=== PATIENT | female | born 1985 | race Caucasian/White ===

== ENCOUNTER 2019-06-02 01:48 | Emergency (ER) | payer SELFPAY ==
[~2019-06-02] VITALS: Ht 160 cm; Wt 93.0 kg
[2019-06-02 01:48] VITALS: BP_SYST 179
[2019-06-02 03:25] LABS: BASOPHILS % (AUTO) 0.4 % (0.0-2.0); EOSINOPHILS # (AUTO) 0.1 K/uL (0.0-0.4); EOSINOPHILS % (AUTO) 1.3 % (0.0-4.0); LYMPHOCYTES % (AUTO) 29.4 % (20.5-51.5); MEAN CORPUSCULAR HEMOGLOBIN 29 pg (27-31); MEAN CORPUSCULAR HGB CONC 33 % (32-36); MEAN CORPUSCULAR VOLUME 87 fL (79.0-98.0); MONOCYTES # (AUTO) 0.7 K/uL (0.0-1.0); MONOCYTES % (AUTO) 6.5 % (1.7-9.3); NEUTROPHILS # (AUTO) 6.4 K/uL (1.8-7.7); NEUTROPHILS % (AUTO) 62.4 % (40.0-70.0); PLATELET COUNT (AUTO) 257 K/uL (130-430); RED BLOOD CELL COUNT(AUTO) 4.84 MIL/uL (4.2-6.2); RED CELL DISTRIBUTION WIDTH 13.1 % (9.0-15.0); WHITE BLOOD COUNT (AUTO) 10.3 K/uL (4.8-10.8)
[2019-06-02 03:37] LABS: CALCIUM 8.1 mg/dL (8.4-11.0); CREATININE 0.57 mg/dL (0.55-1.30)
[2019-06-02 03:42] LABS: ALBUMIN 3.4 g/dL (3.4-4.8); TOTAL BILIRUBIN 0.3 mg/dL (0.0-1.0)
[2019-06-02 04:00] LABS: BILIRUBIN,URINE NEGATIVE (NEGATIVE); CLARITY/URINE CLEAR (CLEAR); COLOR,URINE YELLOW (YELLOW); GLUCOSE,URINE NEGATIVE (NEGATIVE); KETONES,URINE NEGATIVE (NEGATIVE); LEUKOCYTE ESTERASE ,URINE NEGATIVE (NEGATIVE); NITRITE, URINE NEGATIVE (NEGATIVE); PROTEIN URINE NEGATIVE (NEGATIVE); UROBILINOGEN,URINE 0.2 (0.2-1.0)
[2019-06-02 04:03] LABS: BLOOD, URINE TRACE (NEGATIVE)
[2019-06-02 04:07] LABS: BACTERIA,URINE FEW /HPF (None Seen); WBC,URINE 0-3 /HPF (0-3)
[2019-06-02 04:25] VITALS: BP_SYST 156
== END 2019-06-02 04:25 | disposition home or self-care (01) ==
LOC: SED 01:48
DX: K29.70 Gastritis, unspecified, without bleeding (principal); Z90.49 Acquired absence of other specified parts of digestive tract
CPT/HCPCS: 36415; 71045; 71250-TC; 80053; 81000-TC; 81025; 83605; 83690-TC; 83880; 84484; 85025; 85379; 87040-TC; 93005; 99285

== ENCOUNTER 2021-08-14 16:00 | Emergency (ER) | payer BC, MEDICAID ==
[~2021-08-14] VITALS: Ht 160 cm; Wt 81.6 kg
--- NOTE | 2021-08-14 16:02 | NUR ---
ekg done in triage room
[2021-08-14 16:05] VITALS: BP_SYST 143
--- NOTE | 2021-08-14 16:10 | NUR ---
PT C/O CHEST PAIN SINCE THIS AM UPPER CHEST RADIATING TO UPPER BACK WITH SOB AND JAW PAIN.
--- NOTE | 2021-08-14 16:13 | NUR ---
Patient to ER bed 8 to gown for evaluation. Side rails up. Report given to ZELDA ONEAL.
--- NOTE | 2021-08-14 16:25 | NUR ---
MD QUINN AT BEDSIDE FOR ASSESSMENT
[2021-08-14] MEDS ORDERED: NACL 0.9% 1,000 ML IV ONE (16:30)
[2021-08-14] MEDS ORDERED: MORPHINE 4 MG INJ. 4 MG/ML VIAL IVP ONE (16:30)
[2021-08-14] MEDS ORDERED: ONDANSETRON HCL 4 MG/2 ML VIAL IVP ONE (16:30)
[2021-08-14] MEDS ORDERED: ACETAMINOPHEN 500 MG TABLET PO ONE (16:45)
[2021-08-14 17:08] LABS: BASOPHILS # (AUTO) 0.1 K/uL (0.0-0.2); HEMATOCRIT 42.8 % (36-48); HEMOGLOBIN 14.4 g/dL (12.0-16.0); LYMPHOCYTES # (AUTO) 0.4 K/uL (1.0-5.5); LYMPHOCYTES % (AUTO) 5.6 % (20.5-51.5); MEAN CORPUSCULAR HEMOGLOBIN 29 pg (27-31); MEAN CORPUSCULAR HGB CONC 34 % (32-36); MEAN CORPUSCULAR VOLUME 85 fL (79.0-98.0); MONOCYTES # (AUTO) 0.5 K/uL (0.0-1.0); MONOCYTES % (AUTO) 6.3 % (1.7-9.3); NEUTROPHILS # (AUTO) 6.7 K/uL (1.8-7.7); NEUTROPHILS % (AUTO) 87.1 % (40.0-70.0); PLATELET COUNT (AUTO) 244 K/uL (130-430); RED BLOOD CELL COUNT(AUTO) 5.04 MIL/uL (4.2-6.2); RED CELL DISTRIBUTION WIDTH 13.2 % (9.0-15.0); WHITE BLOOD COUNT (AUTO) 7.7 K/uL (4.8-10.8)
--- NOTE | 2021-08-14 17:09 | NUR ---
covid chana done at bedside and sent to lab
[2021-08-14 17:12] LABS: ANION GAP 10 (5-15); CALCIUM 8.4 mg/dL (8.4-11.0); CHLORIDE 101 mmol/L (98-107); CREATININE 1.01 mg/dL (0.55-1.30); GLUCOSE 111 mg/dL (70-99); POTASSIUM 3.1 mmol/L (3.5-5.1); SODIUM SERUM 135 mmol/L (136-145); UREA NITROGEN, BLOOD 7 mg/dL (8-21)
[2021-08-14 17:14] LABS: GFR AFRICAN AMERICAN 80 mL/min (>90)
[2021-08-14 17:19] LABS: ALANINE AMINOTRANSFERASE 30 U/L (12-78); ALBUMIN 3.9 g/dL (3.4-4.8); ASPARTATE AMINOTRANSFERASE 30 U/L (10-37); TOTAL BILIRUBIN 0.5 mg/dL (0.0-1.0)
[2021-08-14] MEDS ORDERED: IBUP-1969 PO (17:49)
[2021-08-14] MEDS ORDERED: METH-634 PO (17:49)
[2021-08-14 18:05] LABS: BILIRUBIN,URINE NEGATIVE (NEGATIVE); BLOOD, URINE 3+ (NEGATIVE); CLARITY/URINE CLEAR (CLEAR); COLOR,URINE YELLOW (YELLOW); GLUCOSE,URINE NEGATIVE (NEGATIVE); KETONES,URINE 1+ (NEGATIVE); LEUKOCYTE ESTERASE ,URINE TRACE (NEGATIVE); NITRITE, URINE NEGATIVE (NEGATIVE); PROTEIN URINE TRACE (NEGATIVE); UROBILINOGEN,URINE 0.2 (0.2-1.0)
[2021-08-14 18:14] LABS: BACTERIA,URINE FEW /HPF (None Seen); MUCUS,URINE None Seen /LPF (None Seen)
[2021-08-14] MEDS ORDERED: KETOROLAC TROMETHAMINE 15 MG VIAL IVP ONE (18:15)
--- NOTE | 2021-08-14 19:20 | NUR ---
SBAR TO ZORA ONEAL. PT VSS. NAD NOTED. END OF CARE.
--- NOTE | 2021-08-14 19:38 | NUR ---
REC RPRT FROM OUT GOING RN/PT IS IN BED RESTING WITH BED LOWERED, LOCKED AND RAILS UP. PT VS ARE WITHIN NORMAL LIMITS. PROVIDED MASK FOR PT. PT IS READY FOR DISCHARGE
[2021-08-14 19:45] VITALS: BP_SYST 144
== END 2021-08-14 19:45 | disposition home or self-care (01) ==
LOC: SED 16:00
DX: U07.1 COVID-19 (principal); R07.89 Other chest pain; R06.02 Shortness of breath
CPT/HCPCS: 36415; 71045; 80053; 81000; 81025; 84484; 85025; 85379; 87086; 87426; 93005; 96365; 96375; 99285; J1885; J2270; J2405; 96374

== ENCOUNTER 2022-07-04 06:31 | Day surgery (SDC) | payer BC ==
[~2022-07-04] VITALS: Ht 160 cm; Wt 90.7 kg
[~2022-07-04 06:31] MED LIST: IBUP-1969 PO; METH-634 PO
[2022-07-04 07:28] LABS: HCG,QUAL RESULT NEGATIVE (NEGATIVE)
[2022-07-04] MEDS ORDERED: ONDANSETRON HCL 4 MG/2 ML VIAL ONE (08:30)
[2022-07-04] MEDS ORDERED: KETOROLAC TROMETHAMINE 30 MG VIAL ONE (08:30)
[2022-07-04] MEDS ORDERED: MIDAZOLAM HCL 2 MG/2 ML VIAL (VERSED) ONE (08:30)
[2022-07-04] MEDS ORDERED: SEVOFLURANE 15 MIN GAS INH ONE (08:30)
[2022-07-04] MEDS ORDERED: LR 1,000 ML IV.SOLN IV ONE (08:30)
[2022-07-04] MEDS ORDERED: NS IRRIG SOLN 1000 ML IR ONE (08:30)
[2022-07-04] MEDS ORDERED: fentaNYL CITRATE/PF 100 MCG/2 ML AMP ONE (08:30)
[2022-07-04] MEDS ORDERED: SUCCINYLCHOLINE CHLORIDE 20 MG/ML(QUELICIN) ONE (08:30)
[2022-07-04] MEDS ORDERED: PROPOFOL 200MG/ 20ML VIAL (DIPRIVAN) IV ONE (08:30)
[2022-07-04] MEDS ORDERED: ROCURONIUM BROMIDE 10 MG/ML (ZEMURON) ONE (08:30)
[2022-07-04] MEDS ORDERED: ONDANSETRON HCL 4 MG/2 ML VIAL IVP PRN (09:30)
[2022-07-04] MEDS ORDERED: HYDROmorphone 1 MG/ML INJ. CARTRIDGE IVP PRN (09:30)
[2022-07-04] MEDS ORDERED: METOCLOPRAMIDE HCL 10 MG/2 ML VIAL IVP PRN (09:30)
[2022-07-04] MEDS ORDERED: KETOROLAC TROMETHAMINE 30 MG VIAL IVP PRN (09:30)
[2022-07-04 12:00] VITALS: BP_SYST 135
== END 2022-07-04 11:55 | disposition home or self-care (01) ==
LOC: SDS 06:31 → SMU 06:31 → SDS 11:55
PROVIDERS: ATTEND Obstetrics & Gynecology
DX: Z30.2 Encounter for sterilization (principal); I10 Essential (primary) hypertension; E66.01 Morbid (severe) obesity due to excess calories; Z90.49 Acquired absence of other specified parts of digestive tract; Z68.35 Body mass index [BMI] 35.0-35.9, adult; Z79.899 Other long term (current) drug therapy
CPT/HCPCS: 87081; 58670; 84703; J1885; J3465; J2405; J2704; J0330; J3010; J7120; C1727